=== PATIENT | female | born 1955 | race Caucasian/White ===

== ENCOUNTER → 2018-05-12 10:13 | Outpatient (CLI) | payer OTHER, SELFPAY | PROVIDERS: Family Provider Family Medicine; PCP Family Medicine; Visit Provider Family Medicine | DX: Z78.0 Asymptomatic menopausal state (principal); Z82.62 Family history of osteoporosis | CPT/HCPCS: 77080 ==

== ENCOUNTER → 2020-06-08 12:45 | Outpatient (CLI) | payer MEDICARE, OTHER, SELFPAY ==
--- NOTE | 2020-06-08 | DI.MRI.S_ITS ---
BREAST MRI OF BOTH BREASTS- WITH CAD: 06/08/2020 CLINICAL: Breast Cancer. Comparison is made to exams dated: 05/17/2020 mammogram, 05/17/2020 ultrasound biopsy, 05/07/2020 ultrasound, 05/07/2020 mammogram, and 04/24/2020 mammogram - [facility]. Interpretation of this MRI was correlated with available mammograms, ultrasounds, and clinical information. Gadolinium contrast calibrated to patient weight was injected. The patient was placed prone in a dedicated breast imaging coil. Precontrast axial STIR and 3D FLASH without fat saturation sequences were obtained. Both before and after bolus injection of contrast, sequential 1-minute axial 3D FLASH with fat saturation sequences for 3 time points, with subtraction images and maximum intensity projections (MIP's) generated. Delayed sagittal FLASH images with fat saturation were also obtained. Computer-aided detection, including computer algorithm analysis of MRI image data for lesion detection and characterization, pharmacokinetic analysis, with further physician review for interpretation, was performed. There is mild bilateral background parenchymal enhancement Right breast: There is a single focus of abnormal enhancement measuring approximate 5 mm on series 12 image 68. This demonstrates brisk arterial phase enhancement with rapid washout on subsequent post-contrast sequences (type III kinetics). The lesion is T1/T2 isointense. No findings of neovascularity or skin thickening. The nipple-areolar complex demonstrates normal enhancement. No right axillary or internal mammary lymphadenopathy. Left breast: Previously biopsied mass in the 2:00 position is redemonstrated, with avid uniform enhancement which demonstrates type III kinetics. The lesion measures approximately 1.4 x 1.1 x 1.2 cm AP x LR x CC. The mass is 7.5 cm deep to the nipple and 3.4 cm deep to the lateral margin of the breast when measured perpendicularly to these landmarks. There is a small 1 cm T1 hyperintense hematoma related to biopsy. No additional abnormal enhancement in the left breast. No findings of neovascularity or skin thickening. Unremarkable nipple-areolar complex. No evidence of left axillary or internal mammary lymphadenopathy. IMPRESSION: KNOWN BIOPSY PROVEN MALIGNANCY 1. Previously biopsied left breast mass consistent with invasive ductal carcinoma. 2. Small but mildly suspicious 5 mm right breast mass. A second look ultrasound is recommended to potentially localize this lesion for biopsy. If unsuccessful, a follow-up MRI in 3-6 months would be recommended. 3. No findings of parth metastasis. BIRADS: 6 This exam was interpreted at Station ID: [id number]. Electronically Signed By: Jorge Luis Mosquera M.D. jr/:06/08/2020 16:56:09 letter sent: Clinical Evaluation ACR BI-RADS Category 6: Known biopsy proven malignancy 3346F
== END ==
PROVIDERS: Family Provider Family Medicine; PCP Student in an Organized Health Care Education/Training Program; Referring Provider Student in an Organized Health Care Education/Training Program; Visit Provider Surgery
DX: C50.412 Malignant neoplasm of upper-outer quadrant of left female breast (principal); N63.10 Unspecified lump in the right breast, unspecified quadrant; Z78.0 Asymptomatic menopausal state; Z82.62 Family history of osteoporosis
CPT/HCPCS: 77049; 77080; A9579

== ENCOUNTER → 2020-06-20 09:40 | Outpatient (CLI) | payer MEDICARE, OTHER, SELFPAY ==
--- NOTE | 2020-06-20 | DI.US.S_ITS ---
LIMITED ULTRASOUND OF RIGHT BREAST: 06/20/2020 CLINICAL: MRI DONE- RT BREAST 06/08/20- U/S RT BREAST AREA SEEN ON MRI- KF. Comparison is made to exams dated: 06/08/2020 breast MRI - [facility], 05/17/2020 ultrasound biopsy, 05/17/2020 mammogram, 04/24/2020 mammogram, 05/07/2020 ultrasound, and 05/07/2020 mammogram - [facility]. Ultrasound of the right breast 9 o'clock, and retroareolar regions was performed. There is a 0.5 cm x 0.5 cm x 0.3 cm oval mass with an indistinct margin in the right breast at 9 o'clock middle depth 1.5 cm from the nipple. This oval mass is hypoechoic. This lesion may correspond to the MRI abnormality. IMPRESSION: SUSPICIOUS OF MALIGNANCY The 0.5 cm x 0.5 cm x 0.3 cm oval mass in the right breast is at a low suspicion for malignancy. An ultrasound guided biopsy is recommended. The findings and recommendations were discussed with the patient by the on-site radiologist, Dr. Howard, at the time of the exam. After the biopsy, correlation between mammographic clip location and the MRI finding can be further assessed. This exam was interpreted at Station ID: [id number]. Electronically Signed By: Brock painter/andreina:06/20/2020 14:24:07 letter sent: Biopsy Required Ultrasound BI-RADS: 4a Low suspicion for malignancy
== END ==
PROVIDERS: Family Provider Family Medicine; PCP Student in an Organized Health Care Education/Training Program; Referring Provider Student in an Organized Health Care Education/Training Program; Visit Provider Surgery
DX: R92.8 Other abnormal and inconclusive findings on diagnostic imaging of breast (principal); N63.15 Unspecified lump in the right breast, overlapping quadrants
CPT/HCPCS: 76642

== ENCOUNTER → 2020-06-27 09:12 | Outpatient (CLI) | payer MEDICARE, OTHER, SELFPAY ==
--- NOTE | 2020-06-27 | DI.US.S_ITS ---
ULTRASOUND OF RIGHT BREAST: 06/27/2020 CLINICAL: Right breast possible biopsy based on MRI. Mass not seen with ultrasound today - biopsy cancelled. Comparison is made to exams dated: 06/20/2020 ultrasound, 06/08/2020 breast MRI - [facility], 04/24/2020 mammogram, 03/24/2019 mammogram, 01/27/2018 mammogram, and 10/08/2016 mammogram - [facility]. Real-time and Doppler ultrasound of the right breast were performed on the areas of interest. Jones scale images of the real-time examination were reviewed. The 0.5 cm x 0.5 cm x 0.3 cm oval mass with an indistinct margin in the right breast at 9 o'clock middle depth 1.5 cm from the nipple is no longer seen. IMPRESSION: SUSPICIOUS OF MALIGNANCY Previous focus at the 9:00 right breast is no longer seen. No suspicious ultrasound finding is seen. As discussed in the previous breast MRI, follow-up breast MRI in 3-6 months recommended to demonstrate stability. Findings and recommendations were discussed in detail with the patient at the time of the examination and all questions were answered. This exam was interpreted at Station ID: [id number]. Electronically Signed By: Mendez leggett/:06/27/2020 14:09:27 Ultrasound BI-RADS: 4a Low suspicion for malignancy
== END ==
PROVIDERS: Family Provider Family Medicine; PCP Student in an Organized Health Care Education/Training Program; Referring Provider Surgery; Visit Provider Surgery
DX: R92.8 Other abnormal and inconclusive findings on diagnostic imaging of breast (principal)
CPT/HCPCS: 76642

== ENCOUNTER → 2020-12-04 10:19 | Outpatient (CLI) | payer MEDICARE, OTHER, SELFPAY ==
[2020-12-04 11:15] LABS: COVID19 -Nasal RAPID Negative (Negative)
== END ==
PROVIDERS: PCP Student in an Organized Health Care Education/Training Program; Visit Provider Specialist
DX: Z01.812 Encounter for preprocedural laboratory examination (principal); Z20.822 Contact with and (suspected) exposure to COVID-19
CPT/HCPCS: 87635

== ENCOUNTER 2020-12-04 12:17 | Day surgery (SDC) | payer MEDICARE, OTHER, SELFPAY ==
[2020-12-04] VITALS (15 sets, daily range): BP systolic 79–186; BP diastolic 48–93; PULSE 54–69; RESP 12–19; TEMP 36.6–37.1; O2SAT 91–100; BMI 22.1
[2020-12-04] MEDS: LACTATED RINGERS 1,000 ML 100 ML IV ×2 (12:57→16:31)
--- NOTE | 2020-12-04 13:12 | SUR.PREOP ---
After IV was placed patient began to feel faint. Cool washcloth placed on forehead and patient laid back on stretcher. Noted to be hypotensive (see documentation). Placed in trendelenburg and fluids opened up. Blood pressure began to come up and patient stated she was starting to feel better. Dr. Diaz at bedside and updated on episode. Blood pressure now 137/77 and patient states she is feeling better. Now laying flat in bed with fluids slowed.
--- NOTE | 2020-12-04 13:21 | PM.PREOP ---
Pre-operative Note COVID-19 COVID-19 status: Negative Result date/Date tested (Pos, Neg/Pending): 12/04/20 Interval Note History & Physical reviewed/Exam performed by Physician: Yes Changes to H&P: No
[2020-12-04] MEDS: CEFAZOLIN 2 GM/100 ML FROZ.PIGGY IV (13:40)
--- NOTE | 2020-12-04 13:53 | SUR.OPER ---
Lithotomy on padded OR bed, head on pillow, arms secured on padded arm boards at <90 degrees abduction. Legs secured in padded yellow fins stirrups.
[2020-12-04] MEDS: BUPIVACAINE 0.25% W/ EPI (PF) 10 ML VIAL 20 ML INJ (13:58)
--- NOTE | 2020-12-04 15:07 | PM.OP.1 ---
Operative Date/Time/Diagnoses Date of procedure: 12/04/20 Time of procedure: 15:07 Pre-op diagnosis: Uterine prolapse Post-op diagnosis: same Procedure & Clinicians Procedure: Anterior and posterior repair with sacrospinous ligament fixation and perineoplasty Same procedure as scheduled: Yes (With added perineoplasty) Indications: Symptomatic uterine prolapse with mild cystocele and rectocele with slightly gaping introitus Surgeon: Marni Diaz Click Yes if Unassisted: Yes Anesthesia Type: General Operative Notes Findings: Cervix prolapsing to 1 cm from the hymen with first-degree cystocele and first-degree rectocele with slightly gaping introitus. Small uterus with no adnexal masses on exam under anesthesia. No rectal masses on exam under anesthesia Closure Type: primary Specimen(s): none sent Applied: catheter (White) and other (Vaginal packing) Estimated Blood Loss (mL): 50 Blood products transfused: none Procedure in detail: Patient was brought to the operating room where she was placed in yellowfin stirrups and prepped and draped in the usual sterile fashion. A check system was reviewed prior to the beginning of the case. Pulsatile stockings were in place and functional throughout the case. Warming was in place. 2 g of Ancef were in prior to beginning of the case. A White catheter was placed. A dilute solution of 1% lidocaine with epinephrine was injected over the cystocele. An incision was made over the cystocele and the incision dissected laterally. Plicating sutures were made over the cystocele with 0 Vicryl suture. The incision was closed with 2-0 Vicryl suture. Next a wedge shaped tissue was taken out of the posterior vaginal opening. The area over the rectocele was injected with a dilute solution of 1% lidocaine with epinephrine. An incision was made over the rectocele with the scalpel. The dissection was undertaken laterally. 0 Prolene suture with the Capio passer was placed through the uterosacral ligament on the right side x2 and sutured to the underside of the cervix. 0 Vicryl suture was used to plicate over the rectocele. A finger was placed in the rectum to be sure there were no sutures placed through the rectal mucosa. The uterosacral sutures were tightened down and the vaginal incision was closed with 2-0 Vicryl suture. The perineal body was built up with interrupted 2 0 Vicryl sutures. The skin was closed with the 2-0 Vicryl suture. Vaginal packing was placed in the vagina and the White left in place. Counts of instruments and sponges were correct. The patient went to recovery room in good condition. Complications: none Post-operative Condition: stable Disposition: Acute Care Plan for aftercare: Vaginal packing and White will be removed in the morning and patient will be sent home after postvoid residual
[2020-12-04] MEDS: OXYCODONE/ACETAMINOPHEN 5/325 TABLET 1 TAB PO (15:11)
[2020-12-04] MEDS: ONDANSETRON 4 MG/2 ML INJ IV ×2 (15:11→20:18)
[2020-12-04] MEDS: KETOROLAC 30 MG/ML VIAL IV (20:22)
[2020-12-04] MEDS: diphenhydrAMINE 25 MG TABLET PO (22:10)
[2020-12-04] MEDS: DOCUSATE 100 MG CAPSULE PO (22:10)
--- NOTE | 2020-12-04 23:48 | PC.NURSE ---
Report received from PACU, care assumed at 1530 A&Ox3. VSS. Vaginal packing intact, scant drainage. White catheter. Reports pain 3/10, well-tolerated. Intermittently nauseated, no emesis. Pt. OOB to chair x1. Virgilina woozy and nauseated and wanted to immediately return to bed. Requested sleep aid. Order obtained.
[2020-12-05 00:40] VITALS: BP 148/80; PULSE 68; RESP 14; TEMP 37.2; O2SAT 96
[2020-12-05 01:30] VITALS: O2SAT 97
[2020-12-05] MEDS: KETOROLAC 30 MG/ML VIAL IV ×2 (02:29→09:01)
[2020-12-05 03:14] VITALS: BP 138/73; PULSE 68; RESP 14; TEMP 37.1; O2SAT 98
[2020-12-05] MEDS: LACTATED RINGERS 1,000 ML 100 ML IV (05:09)
[2020-12-05] MEDS: ONDANSETRON 4 MG/2 ML INJ IV ×2 (05:10→12:24)
[2020-12-05 05:21] LABS: Add Manual Diff / Slide Review NO; Basophils Absolute Auto 0 /uL (0-100); Basophils Percent Auto 0.2 % (0-2); Eosinophils Absolute Auto 0 /uL (0-450); Hematocrit 40.7 % (36-46); Hemoglobin 13.5 g/dL (12.0-16.0); Lymphocytes Absolute Auto 1000 /uL (1100-4500); Lymphocytes Percent Auto 8.5 % (25-40); Mean Corpuscular HGB Conc 33.3 % (30-36); Mean Corpuscular Hemoglobin 29.9 PG (26-34); Monocytes Absolute Auto 800 /uL (0-900); Monocytes Percent Auto 6.5 % (3-14); Neutrophils Absolute Auto 9900 /uL (1500-7000); Neutrophils Percent Auto 84.8 % (50-75); Platelet Count 191 X10^3/uL (150-400); Red Blood Cell Count 4.52 X10^6/uL (4.0-5.2); Red Cell Distribution Width 12.2 % (11.6-14.8); White Blood Cell Count 11.6 X10^3/uL (4.5-11.0)
[2020-12-05] MEDS: OXYCODONE IR 5 MG TABLET PO ×2 (05:39→12:23)
--- NOTE | 2020-12-05 07:47 | PM.DS.1 ---
History of Present Illness History of Present Illness Date Patient Seen: 12/05/20 Time Patient Seen: 07:48 Chief complaint: *OPB* Narrative: Postoperative day #1 anterior posterior repair with sacrospinous ligament fixation. Patient had some mild nausea earlier but is feeling fine now. Pain is controlled with narcotic. Patient passed her bladder trial. Minimal vaginal bleeding Discharge Providers Provider Discharge Date: 12/05/20 Primary care physician: Chely Pepe MD Discharge provider: Marni Diaz MD Summary Hospital Course Discharge Diagnosis: Uterine prolapse status post anterior and posterior repair with sacrospinous ligament fixation and perineoplasty Hospital Course: Patient underwent an anterior and posterior repair with sacrospinous ligament fixation and perineoplasty on 12/04/2020 she is doing well postop she passed her bladder trial Status at Discharge Cognitive/behavioral status at discharge: oriented Functional status at discharge: independent ambulation Overall status at discharge: patient is progressing back to baseline Exam Vital Signs (past 8 hours): - 12/05/20 00:40 12/05/20 01:30 12/05/20 03:14 Temperature 98.9 F 98.8 F Pulse Rate 68 68 Respiratory Rate 14 14 Blood Pressure 148/80 H 138/73 Pulse Oximetry 96 97 98 Oxygen Delivery Method Room Air Oxygen Flow Rate 0 Narrative Exam Narrative: Patient's abdomen is soft, nontender. Vaginal packing was removed with minimal amount of blood on it. White catheter removed. Extremities are nontender and no edema. Objective Labs Result Diagrams: 12/05/20 04:55 Labs: Laboratory Results - last 24 hr 12/05/20 04:55 WBC 11.6 H RBC 4.52 Hgb 13.5 Hct 40.7 MCV 90.0 MCH 29.9 MCHC 33.3 RDW 12.2 Plt Count 191 Neut % (Auto) 84.8 H Lymph % (Auto) 8.5 L Ransom % (Auto) 6.5 Eos % (Auto) 0.0 L Baso % (Auto) 0.2 Neut # (Auto) 9900 H Lymph # (Auto) 1000 L Ransom # (Auto) 800 Eos # (Auto) 0 Baso # (Auto) 0 PFSH Medical History (Updated 12/04/20 @ 08:29 by Lilly Rush RN) Contreras's esophagus (~2014) Chicken pox Colon polyps (~2009) Fibroids (~1989) Headache (~2009) Heavy menstrual period (~1969) Hypertension (~2009) Mumps Osteoarthritis (~2004) Painful menstrual periods (~1969) Postmenopausal Tinnitus (~2004) Surgical History (Updated 05/30/20 @ 16:56 by Agustín Jo MD) Anesthesia Skin cancer Family History (Updated 11/17/19 @ 20:42 by Dawn Santos) Father Prostate cancer History of heart disease Hypertension Hyperlipidemia Stroke Mother Breast cancer History of heart disease Hyperlipidemia Hypertension Stroke Brother Hyperlipidemia Hypertension Sister Hypertension Hyperlipidemia Social History household members: spouse Smoking Status: Never smoker alcohol intake: current Discharge Assessment & Plan Assessment and Plan Assessment: Postoperative repair of prolapse doing well Discharge Plan Discharge Plan Patient Disposition: Home Discharge orders & Medications Discharge Orders: Discharge (Order); Ordered 12/05/20 Ordered By: Marni Diaz Prescriptions: New ondansetron 4 mg tablet,disintegrating 4 mg PO Q8H PRN (Reason: nausea and vomiting) Qty: 10 RF: 1 oxycodone 5 mg tablet 5 mg PO Q6H PRN (Reason: pain) Qty: 20 RF: 0 Continued ascorbic acid (vitamin C) 500 MG tablet 500 mg PO QDAY Qty: 0 RF: 0 cholecalciferol (vitamin D3) [Vitamin D3] 1,000 UNIT tablet 1,000 unit PO QDAY Qty: 0 RF: 0 coenzyme Q10 [CoQ-10] 30 mg capsule 30 mg PO DAILY RF: 0 atorvastatin 40 mg tablet 40 mg PO DAILY RF: 0 cyanocobalamin (vitamin B-12) [Vitamin B-12] 1,000 mcg Tablet 1,000 mcg PO DAILY RF: 0 zinc 50 mg Tablet 50 mg DAILY RF: 0 hydrochlorothiazide 12.5 mg Tablet 12.5 mg PO DAILY RF: 0 [place] Mushroom 1 tab DAILY RF: 0 lisinopril 50 mg 50 mg PO DAILY RF: 0 omega-3 fatty acids-vitamin E 1,000 mg Capsule 1 cap PO DAILY RF: 0 letrozole 2.5 mg tablet 2.5 mg PO Q OTHER DAY RF: 0 Follow up/Referrals: Marni Diaz MD [Physician] - 2 Weeks Chely Pepe MD [Primary Care Provider] - Diet/Activity/Treatments Diet: Regular Activity: Nothing in vagina or lifting over 20 lb for 6 weeks May shower immediately. No baths for [address] within 4 hours of taking narcotic pain medicine. Skin/Wound/Dressing Care Report to your healthcare provider any signs of infection, such as:: chills, fever and increased pain Dressing: There are no dressings Visit Report/Discharge Packet Instructions: DI for Cystocele and Rectocele Repair, DI for Constipation Discharge Data Primary Care Provider: Chely Pepe Attending Provider: Marni Diaz
[2020-12-05 08:00] VITALS: O2SAT 100
[2020-12-05 08:09] VITALS: BP 144/73; PULSE 60; RESP 21; TEMP 36.6; O2SAT 98
[2020-12-05] MEDS: lisinopriL 20 MG TABLET 50 MG PO (09:00)
[2020-12-05] MEDS: DOCUSATE 100 MG CAPSULE PO (09:00)
[2020-12-05] MEDS: hydroCHLOROthiazide 25 MG TABLET 12.5 MG PO (09:01)
--- NOTE | 2020-12-05 11:40 | CM.DANOTE ---
DCP: Case received, EMR reviewed and met with patient. Introduced self and role. Was able to obtain information from patient regarding her baseline activity status prior to hospitalization. DCP assessment completed with information currently available. Patient is a 65 year old female who admitted yesterday to the care of the [facility]. PCP: Yaritza Kennedy. Payer: confirmed: Medicare/[employer]. Patient came to the hospital for a surgical procedure. She had anterior posterior repair with sacrospinous fixation ligament. Patient has history of uterine prolapse with cystole Met with patient in her room. She is alert and oriented, pleasant. Patient resides on [address] with her spouse, Jonathan. She is independent at baseline. P: Patient is to be discharged home today. Lyric Vincent RN/Lithographic Stripper
--- NOTE | 2020-12-05 16:18 | PC.NURSE ---
Discharge: Pt feels ready to d/c home. She is able to eat, but does have nausea at times. Vds w/out diff. Po pain meds effective for pain control. RX for zofran and pain meds were called in and already picked up by dtr. Priority load pass given. There was some confusion about pain medications. Dr. Diaz cleared up pt concern. Vd this am after isaac removal was 400mls, pvr was 35mls. Reviewed d/c packet. Questions answered. Pt d/c to home with dtr.
== END 2020-12-05 14:35 | disposition home or self-care (01) ==
LOC: OR 12:20 → AC 12:20
PROVIDERS: PCP Student in an Organized Health Care Education/Training Program; Referring Provider Specialist; Visit Provider Specialist
PROC: (CPT 57282; principal; 2020-12-04 13:30)
DX: N81.2 Incomplete uterovaginal prolapse (principal); I10 Essential (primary) hypertension; Z20.822 Contact with and (suspected) exposure to COVID-19
CPT/HCPCS: 57282; 57260; 36415; 85025; 87635; C9803; J0690; J1100; J1885; J2250; J2405; J2704; J3010

== ENCOUNTER → 2021-01-03 12:00 | Outpatient (CLI) | payer MEDICARE, OTHER, SELFPAY ==
[2020-12-04 12:34] VITALS: BMI 22.1
--- NOTE | 2021-01-03 | DI.MRI.S_ITS ---
BREAST MRI OF BOTH BREASTS: 01/03/2021 CLINICAL: Malignant neoplasm of unspecified site of left breast. The patient was placed prone in a dedicated breast imaging coil. Precontrast axial STIR and 3D FLASH without fat saturation sequences were obtained. Both before and after bolus injection of contrast, sequential 1-minute axial 3D FLASH with fat saturation sequences for 3 time points, with subtraction images and maximum intensity projections (MIP's) generated. Delayed sagittal FLASH images with fat saturation were also obtained. Computer-aided detection, including computer algorithm analysis of MRI image data for lesion detection and characterization, pharmacokinetic analysis, with further physician review for interpretation, was performed. Comparison is made to prior mammogram and ultrasound studies as well as prior MRI breast 06/08/2020. Left breast: Left breast lumpectomy changes. No suspicious enhancement within the surgical bed or elsewhere in the left breast. No findings of neovascularity or skin thickening. The nipple-areola complex is unremarkable. No abnormally enhancing or threshold enlarged lymph node in the axillary, subpectoral, or internal mammary stations. Right breast: No suspicious enhancement in the right breast. No findings of neovascularity or skin thickening. The nipple-areola complex is unremarkable. No abnormally enhancing or threshold enlarged lymph node in the axillary, subpectoral, or internal mammary stations. Bilateral background breast enhancement is mild and symmetric. IMPRESSION: BENIGN No findings of recurrent or residual disease. COMMENT: The imaging literature indicates that a negative contrast breast MRI examination has a high sensitivity and a moderate specificity for detecting and excluding invasive carcinomas to a detection threshold of 3-5 mm; nonetheless, appropriate clinical and mammographic follow-up are recommended. MRI is not sensitive for detecting DCIS (ductal carcinoma in situ) and may not detect large invasive neoplasms that show only minimal enhancement such as mucinous carcinoma. If there are suspicious calcifications or clinically worrisome palpable masses, then biopsy should still be considered. Invasive neoplasms can be hidden by co-existent and benign enhancement caused by mastitis, hormone therapy effects, radiation therapy, , and recent biopsy or surgery. False positive examinations can occur in a number of circumstances, including breasts that have recently been subject to invasive procedures and those that contain atypical ductal hyperplasia, hormonally stimulated glandular tissue, fat necrosis, or radial scars. Future imaging is recommended as follows: 04/25/2021 screening mammogram. This exam was interpreted at Station ID: [id number]. Electronically Signed By: Jorge Luis Mosquera M.D. jr/:01/03/2021 14:58:11 letter sent: Normal Exam ACR BI-RADS Category 2: Benign Finding(s) 3342F
== END ==
PROVIDERS: PCP Student in an Organized Health Care Education/Training Program; Referring Provider Surgery; Visit Provider Surgery
DX: C50.912 Malignant neoplasm of unspecified site of left female breast (principal)
CPT/HCPCS: 77049

== ENCOUNTER → 2021-03-05 12:08 | Outpatient (CLI) | payer MEDICARE, OTHER, SELFPAY ==
[2020-12-04 12:34] VITALS: BMI 22.1
--- NOTE | 2021-03-05 12:13 | DI.RAD.S_ITS ---
PROCEDURE: XR FOOT LT MIN 3V INDICATIONS: LT FOOT PAIN TECHNIQUE: 3 views of the foot were acquired. COMPARISON: None. FINDINGS: Bones: No fractures or dislocations. No suspicious bony lesions. Mild hallux valgus metatarsus prima varus alignment and medial bunion. Mild 1st MTP and diffuse interphalangeal joint space narrowing. Soft tissues: No tibiotalar joint effusion. Achilles tendon appears normal. IMPRESSION: Numeral. Mild hallux valgus alignment and medial bunion. 2. Mild 1st MTP and diffuse interphalangeal joint degeneration. Dictated by: Jose Dumont [facility] Interpreted: Darinel Gallardo MD on 03/05/2021 at 13:35 Transcribed by: MAGAN on 03/05/2021 at 13:36 Approved by: Darinel Gallardo M.D. on 03/05/2021 at 15:37
== END ==
PROVIDERS: PCP Student in an Organized Health Care Education/Training Program; Referring Provider Student in an Organized Health Care Education/Training Program; Visit Provider Student in an Organized Health Care Education/Training Program
DX: M79.672 Pain in left foot (principal); M20.12 Hallux valgus (acquired), left foot; M21.612 Bunion of left foot; M19.072 Primary osteoarthritis, left ankle and foot
CPT/HCPCS: 73630

== ENCOUNTER → 2021-04-25 11:28 | Outpatient (CLI) | payer MEDICARE, OTHER, SELFPAY ==
[2020-12-04 12:34] VITALS: BMI 22.1
--- NOTE | 2021-04-25 | DI.MG.S_ITS ---
BILATERAL DIGITAL SCREENING MAMMOGRAM 3D/2D WITH CAD: 04/25/2021 CLINICAL: Routine screening. Personal history of left breast cancer. Family history of breast cancer. Comparison is made to exams dated: 01/03/2021 breast [facility], 05/17/2020 mammogram, 05/07/2020 mammogram, and 04/24/2020 mammogram - [facility]. The tissue of both breasts is heterogeneously dense. This may lower the sensitivity of mammography. Current study was also evaluated with a Computer Aided Detection (CAD) system. There are benign post operative findings in the left breast. No significant masses, calcifications, or other findings are seen in either breast. There has been no significant interval change. IMPRESSION: BENIGN There is no mammographic evidence of malignancy. A 1 year screening mammogram is recommended. This exam was interpreted at Station ID: [id number]. NOTE: For mammograms, a report in lay terms will be sent to the patient. Approximately 15% of breast malignancies will not be visualized mammographically. In the management of a palpable breast mass, a negative mammogram must not discourage biopsy of a clinically suspicious lesion. Electronically Signed By: Migue cruz/andreina:04/25/2021 12:08:54 letter sent: Normal Exam ACR BI-RADS Category 2: Benign Finding(s) 3342F
== END ==
PROVIDERS: PCP Student in an Organized Health Care Education/Training Program; Referring Provider Surgery; Visit Provider Surgery
DX: Z12.31 Encounter for screening mammogram for malignant neoplasm of breast (principal); Z85.3 Personal history of malignant neoplasm of breast; Z80.3 Family history of malignant neoplasm of breast
CPT/HCPCS: 77063; 77067

== ENCOUNTER → 2022-05-27 13:55 | Outpatient (CLI) | payer MEDICARE, OTHER, SELFPAY ==
[2020-12-04 12:34] VITALS: BMI 22.1
--- NOTE | 2022-05-27 | DI.MG.S_ITS ---
BILATERAL DIGITAL SCREENING MAMMOGRAM 3D/2D WITH CAD POST LUMPECTOMY: 05/27/2022 CLINICAL: Routine screening. Personal history of left breast cancer. Family history of breast cancer. Comparison is made to exams dated: 04/25/2021 mammogram - [facility], 04/24/2020 mammogram, and 03/24/2019 mammogram - [facility]. Both breasts are heterogeneously dense, which may obscure small masses (category c / 51-75% glandular tissue). Current study was also evaluated with a Computer Aided Detection (CAD) system. There are benign post operative findings in the left breast. No significant masses, calcifications, or other findings are seen in either breast. There has been no significant interval change. IMPRESSION: BENIGN There is no mammographic evidence of malignancy. A 1 year screening mammogram is recommended. This exam was interpreted at Station ID: [id number]. NOTE: For mammograms, a report in lay terms will be sent to the patient. Approximately 15% of breast malignancies will not be visualized mammographically. In the management of a palpable breast mass, a negative mammogram must not discourage biopsy of a clinically suspicious lesion. Electronically Signed By: Levy loaiza/andreina:05/27/2022 18:08:45 copy to: RICHARD CALZADA letter sent: Normal Exam ACR BI-RADS Category 2: Benign Finding(s) 3342F
== END ==
PROVIDERS: PCP Family Medicine; Referring Provider Family Medicine; Visit Provider Family Medicine
DX: Z12.31 Encounter for screening mammogram for malignant neoplasm of breast (principal); Z80.3 Family history of malignant neoplasm of breast; Z85.3 Personal history of malignant neoplasm of breast
CPT/HCPCS: 77063; 77067

== ENCOUNTER 2022-11-06 09:39 | Day surgery (SDC) | payer MEDICARE, OTHER, SELFPAY ==
[2020-12-04 12:34] VITALS: BMI 22.1
--- NOTE | 2022-11-06 | PATH_ITS ---
[facility] Accession Number: [id number] No. of containers..03 Tissue . 01 Material submitted: . PART A: esophagus, E-G Junction - GE JUNCTION PART B: colon - TRANSVERSE POLYPS X 2 PART C: colon - DESCENDING POLYP X 2 . 01 Diagnosis: A. Gastroesophageal Junction, Biopsy: Columnar mucosa with mild chronic inflammation. Negative for intestinal metaplasia. Negative for dysplasia and malignancy. . B. Transver Colon, Polyps x2, Biopsies: Tubular adenoma. Serrated lesion, favor sessile serrated adenoma. . C. Descending Colon, Polyp x2, Biopsies: Tubular adenoma in four of eight fragments. MRV 11/11/2022 1456 Local . 01 Electronically signed: . Ilda Shannon MD, Pathologist NPI- [id number] . 01 Gross description: . Part A: GE JUNCTION: Received in formalin are 2 fragment(s) of marquez, soft tissue measuring 0.2 x 0.2 x 0.2 cm to 0.3 x 0.3 x 0.2 cm submitted entirely in 1 cassette(s) Part B: TRANSVERSE POLYPS X 2: Received in formalin are 3 fragment(s) of marquez, soft tissue measuring 0.2 x 0.1 x 0.1 cm to 1.4 x 0.3 x 0.3 cm submitted entirely in 1 cassette(s) Part C: DESCENDING POLYP X 2: Received in formalin are multiple fragment(s) of marquez, soft tissue measuring 0.2 x 0.2 x 0.1 cm to 0.6 x 0.6 x 0.3 cm submitted entirely in 1 cassette(s) /LES 11/07/2022 0100 Local . 01 Pathologist provided ICD-10: D12.3, D12.4 . 01 CPT . 392094, 747811, 502202 Specimen Comment: A courtesy copy of this report has been sent to [phone] Performed at: 01 [facility] [address] [place] [address], [place], [place] [id number] MD Migue Weaver MD Phone: [phone]
[2022-11-06] MEDS: LACTATED RINGERS 1,000 ML 42 ML IV (09:53)
[2022-11-06 10:02] VITALS: BP 154/83; PULSE 85; RESP 17; TEMP 36.6; O2SAT 97; BMI 21.2
--- NOTE | 2022-11-06 11:35 | PM.OP.EC ---
Operative Date/Time/Diagnoses Date of procedure: 11/06/22 Time of procedure: 11:35 Pre-op diagnosis: History of Contreras's esophagus and history of colon polyps Post-op diagnosis: same Procedure & Clinicians Study performed: EGD and colonoscopy Same procedure as scheduled: Yes Surgeon: Ben Marcano Procedure Notes Procedure in detail: Surgeon: Ben Marcano MD Anesthesia: Tarsha Hudson EXPERIENCE DESIGN DIRECTOR Procedure in detail: A timeout was performed. A bite blocked was placed and monitors were attached to the patient. The patient was positioned in a left lateral decubitus position. Sedation was administered. Once the patient was sedated the endoscope was inserted through the bite block and passed through the esophagus and stomach and into the duodenum. Duodenum was normal. We then withdrew the scope into the stomach. No abnormalities were seen in stomach. The endoscope was retroflexed and a very small hiatal hernia was seen. The endoscope was straightned and withdrawn into the esophagus. There was some salmon-colored mucosa at the GE junction and random biopsies were taken. Findings: [place]-colored mucosa at the GE junction Next we repositioned the patient for a colonoscopy. A digital rectal exam was performed and was normal. The colonoscope was inserted and advanced to the cecum. The appendiceal orifice was identified and photographed. The scope was slowly withdrawn over greater than 6 minutes. There were 2 polyps each about 7 mm in the transverse colon and they were removed with cold snare and sent together. There were 2 polyps in the descending colon one of which was about 1 cm and had to be removed piecemeal with cold snare and Jumbo forceps. The smaller of the 2 polyps was about 7 mm and was removed in 1 shot with the cold snare. Some ink was injected where these 2 polyps removed. They were sent together. The scope was retroflexed in the rectum and no other abnormalities were seen. Findings: 2 polyps of about 7 mm in the transverse colon and 2 polyps in the descending colon was about 1 cm and the other about 7 mm EBL: 10 mL Scope withdrawal time: 19 minutes Sedation minutes: 27 minutes Post-procedure Disposition: PACU
--- NOTE | 2022-11-06 11:37 | PM.HP.1 ---
History of Present Illness History of Present Illness Date Patient Seen: 11/06/22 Time Patient Seen: 11:37 Chief complaint: EGD/Colonoscopy Narrative: Jessica has a history of Contreras's esophagus. She is due for colonoscopy this year. See the office note from February for details. Patient History Medical History Contreras's esophagus (~2014) Chicken pox Colon polyps (~2009) Fibroids (~1989) Headache (~2009) Heavy menstrual period (~1969) Hypertension (~2009) Mumps Osteoarthritis (~2004) Painful menstrual periods (~1969) Postmenopausal Tinnitus (~2004) Surgical History Anesthesia H/O lumpectomy Skin cancer Family & Social History Family History Father Prostate cancer History of heart disease Hypertension Hyperlipidemia Stroke Mother Breast cancer History of heart disease Hyperlipidemia Hypertension Stroke Brother Hyperlipidemia Hypertension Sister Hypertension Hyperlipidemia Social History: household members other Tobacco & Substance use: Smoking Status Never smoker alcohol intake current alcohol intake frequency a few times a week Substance Use Type does not use Meds Home Medications and Allergies Home Medications Medication Instructions Recorded Confirmed Type ascorbic acid (vitamin C) 500 mg 500 mg PO QDAY #0 tabs 06/13/16 11/06/22 History tablet cholecalciferol (vitamin D3) 25 1,000 unit PO QDAY #0 tabs 06/13/16 11/06/22 History mcg (1,000 unit) tablet (Vitamin D3) cyanocobalamin (vitamin B-12) 1,000 mcg PO DAILY 05/30/20 11/06/22 History 1,000 mcg tablet (Vitamin B-12) lisinopril 50 mg PO DAILY 05/30/20 11/06/22 History zinc 50 mg tablet 50 mg DAILY 05/30/20 11/06/22 History atorvastatin 40 mg tablet 40 mg PO DAILY 11/28/20 11/06/22 History sertraline 25 mg tablet (Zoloft) 50 mg PO DAILY 01/14/22 11/06/22 History hydrochlorothiazide 50 mg tablet 50 mg PO DAILY 03/03/22 11/06/22 History sodium,potassium,mag sulfates 17.5 See Rx Instructions PO .COMPLEX 10/01/22 11/06/22 Rx gram-3.13 gram-1.6 gram oral soln #354 mL (Suprep Bowel Prep Kit) letrozole 2.5 mg tablet 2.5 mg PO DAILY #90 tabs 10/28/22 11/06/22 Rx Allergies Allergy/AdvReac Type Severity Reaction Status Date / Time metronidazole [METRONIDAZOLE] Allergy Intermediate hives Verified 11/06/22 09:53 epinephrine AdvReac Intermediate anxiety Verified 11/06/22 09:53 and shaking (I suspect vascular injection) lidocaine AdvReac Intermediate anxiety Verified 11/06/22 09:53 and shaking (I suspect vascular injection) Exam Vital Signs (past 8 hours): - 11/06/22 10:02 Temperature 98 F Pulse Rate 85 Respiratory Rate 17 Blood Pressure 154/83 H Pulse Oximetry 97 Oxygen Delivery Method Room Air Oxygen Delivery Method Room Air Const General: No acute distress Assessment & Plan Assessment and plan (1) History of colon polyps: Status: Acute (2) Contreras's esophagus: Qualifiers: Contreras's esophagus type: without dysplasia Qualified Code(s): K22.70 - Contreras's esophagus without dysplasia Status: Chronic Plan 67-year-old woman who is here for EGD and colonoscopy. She would like to proceed. Time Spent With Patient Critical Care time: I spent a total of [] minutes of critical care time on this patient's care today; this time is exclusive of procedural time.
[2022-11-06 13:04] VITALS: BP 123/68; PULSE 57; RESP 16; O2SAT 98
[2022-11-06 13:11] VITALS: BP 123/68; PULSE 59; RESP 16; TEMP 36.6; O2SAT 98
[2022-11-06 13:20] VITALS: BP 130/74; PULSE 61; RESP 16; TEMP 36.8; O2SAT 99
--- NOTE | 2022-11-06 13:35 | SUR.PHASEII ---
Discharged home with belongings and Instructions/Report. Denies pain, no N/V. WC to ER Entrance to family.
== END 2022-11-06 13:43 | disposition home or self-care (01) ==
PROVIDERS: PCP Family Medicine; Referring Provider Surgery; Visit Provider Surgery
PROC: 0DJ08ZZ Inspection of Upper Intestinal Tract, Via Natural or Artificial Opening Endoscopic (ICD-10-PCS; CPT 43235; principal; 2022-11-06 10:45)
PROC: 0DJD8ZZ Inspection of Lower Intestinal Tract, Via Natural or Artificial Opening Endoscopic (ICD-10-PCS; CPT 45378; 2022-11-06 10:45)
DX: Z12.11 Encounter for screening for malignant neoplasm of colon (principal); Z86.010 Personal history of colon polyps; Z87.19 Personal history of other diseases of the digestive system; K44.9 Diaphragmatic hernia without obstruction or gangrene; K29.50 Unspecified chronic gastritis without bleeding; D12.3 Benign neoplasm of transverse colon; D12.4 Benign neoplasm of descending colon
CPT/HCPCS: 43239; 45381; 45385; J2405

== ENCOUNTER → 2023-07-21 10:05 | Outpatient (CLI) | payer MEDICARE, OTHER, SELFPAY ==
[2020-12-04 12:34] VITALS: BMI 22.1
--- NOTE | 2023-07-21 | DI.MG.S_ITS ---
BILATERAL DIGITAL SCREENING MAMMOGRAM 3D/2D WITH CAD: 07/21/2023 CLINICAL: Routine screening. Family history of breast cancer. Breast cancer. Comparison is made to exams dated: 05/27/2022 mammogram, 04/25/2021 mammogram - [facility], 05/17/2020 mammogram, 05/07/2020 mammogram, and 04/24/2020 mammogram - [facility]. Both breasts are heterogeneously dense, which may obscure small masses (category c / 51-75% glandular tissue). Current study was also evaluated with a Computer Aided Detection (CAD) system. There are benign calcifications in both breasts. There also are benign post operative findings in the left breast. No significant masses, calcifications, or other findings are seen in either breast. There has been no significant interval change. IMPRESSION: BENIGN There is no mammographic evidence of malignancy. A 1 year screening mammogram is recommended. This exam was interpreted at Station ID: [id number]. NOTE: For mammograms, a report in lay terms will be sent to the patient. Approximately 15% of breast malignancies will not be visualized mammographically. In the management of a palpable breast mass, a negative mammogram must not discourage biopsy of a clinically suspicious lesion. Electronically Signed By: Tin Power M.D. acr/penrad:07/21/2023 11:12:44 copy to: RICHARD CALZADA letter sent: Normal Exam ACR BI-RADS Category 2: Benign Finding(s) [id number]
== END ==
PROVIDERS: PCP Family Medicine; Referring Provider Internal Medicine Medical Oncology; Visit Provider Internal Medicine Medical Oncology
DX: Z12.31 Encounter for screening mammogram for malignant neoplasm of breast (principal); Z85.3 Personal history of malignant neoplasm of breast; Z80.3 Family history of malignant neoplasm of breast
CPT/HCPCS: 77063; 77067

== ENCOUNTER → 2023-10-07 09:43 | Outpatient (CLI) | payer MEDICARE, OTHER, SELFPAY ==
[2020-12-04 12:34] VITALS: BMI 22.1
--- NOTE | 2023-10-07 09:45 | DI.RAD.S_ITS ---
Bone Density Report Name: HERBER CASIANO Age: 68 Sex: Female Ethnicity: White Date of : 1955 Indication: postmenopausal; screening for osteoporosis; Referring Provider: RICHARD CURRAN Study: Bone densitometry was performed. Exam Date: October 07, 2023 Accession number: [id number] Bone Density: Region BMD T-score Z-score Classification AP Spine(L1, L2, L3) 1.039 0.2 2.3 Normal Femoral Neck (Left) 0.756 -0.8 1.0 Normal Total Hip (Left) 0.910 -0.3 1.3 Normal Femoral Neck (Right) 0.842 -0.1 1.8 Normal Total Hip (Right) 0.977 0.3 1.8 Normal Total Hip Mean 0.944 0.0 1.6 Normal World Health Organization criteria for BMD impression classify patients as: Normal (T-score at or above -1.0), Osteopenia (T-score between -1.0 and -2.5), or Osteoporosis (T-score at or below -2.5). 10-year Fracture Risk: FRAX not reported because: All T-scores for Spine Total, Hip Total, Femoral Neck at or above -1.0 Previous Exams: -- Region Exam Age BMD T-score BMD Change BMD Change Date g/cm2 vs Baseline vs Previous -- AP Spine (L1-L3) 10/07/2023 68 1.039 0.2 -0.044 (-4.1%)# -0.047 (-4.3%)# 06/08/2020 65 1.086 0.6 0.003 (0.3%) 0.003 (0.3%) 05/12/2018 63 1.083 0.6 Total Hip(Left) 10/07/2023 68 0.910 -0.3 0.014 (1.6%)# 0.005 (0.5%)# 06/08/2020 65 0.905 -0.3 0.009 (1.1%) 0.009 (1.1%) 05/12/2018 63 0.896 -0.4 Total Hip(Right) 10/07/2023 68 0.977 0.3 -0.025 (-2.5%)# 0.081 (9.1%)# 06/08/2020 65 0.896 -0.4 -0.107 (-10.7%)* -0.107 (-10.7%)* 05/12/2018 63 1.003 0.5 -- *Denotes significance at 95% confidence level, LSC for AP Spine = 0.022 g/cm2, LSC for Total Hip = 0.027 g/cm2 Rate of change results reflect vertebral levels common to all scans # Denotes dissimilar scan types or analysis methods Impression: The patient has normal bone mass. No significant bone loss was observed. Discussion: BONE DENSITY IS ABOVE THE MINIMUM DESIRABLE LEVEL AT ALL SKELETAL SITES TESTED. This patient's bone mineral density is above the minimum desirable level (T-score -1.0 or better) at all sites measured. The patient should follow a healthful lifestyle (good nutrition with adequate calcium and vitamin D, and appropriate weight-bearing exercise). Follow-Up: Consider repeating this study in 5 years or sooner if there is some new clinical indication. Reported by: [facility] KARIME BURCH M.D. on 10/07/2023 10:17:00 AM.
== END ==
PROVIDERS: PCP Family Medicine; Referring Provider Family Medicine; Visit Provider Family Medicine
DX: Z13.820 Encounter for screening for osteoporosis (principal); Z78.0 Asymptomatic menopausal state
CPT/HCPCS: 77080

== ENCOUNTER → 2024-08-10 10:54 | Outpatient (CLI) | payer MEDICARE, OTHER, SELFPAY ==
[2020-12-04 12:34] VITALS: BMI 22.1
--- NOTE | 2024-08-10 10:55 | DI.MG.S_ITS ---
BILATERAL DIGITAL SCREENING MAMMOGRAM 3D/2D WITH CAD POST LUMPECTOMY: 08/10/2024 CLINICAL: Routine screening. Personal history of left breast cancer. Family history of breast cancer. Comparison is made to exams dated: 07/21/2023 mammogram, 04/25/2021 mammogram, and 05/27/2022 mammogram - [facility]. The breasts are heterogeneously dense, which may obscure small masses (category c / 51-75% glandular tissue). Current study was also evaluated with a Computer Aided Detection (CAD) system. There are benign calcifications in both breasts. There also are benign post operative findings in the left breast. No significant masses, calcifications, or other findings are seen in either breast. There has been no significant interval change. IMPRESSION: BENIGN There is no mammographic evidence of malignancy. A 1 year screening mammogram is recommended. This exam was interpreted at Station ID: [id number]. NOTE: For mammograms, a report in lay terms will be sent to the patient. Approximately 15% of breast malignancies will not be visualized mammographically. In the management of a palpable breast mass, a negative mammogram must not discourage biopsy of a clinically suspicious lesion. Electronically Signed By: Johanne connolly/andreina:08/10/2024 16:23:40 copy to: SURJIT MADRIGAL letter sent: Normal Exam ACR BI-RADS Category 2: Benign
== END ==
PROVIDERS: PCP Family Medicine; Referring Provider Family Medicine; Visit Provider Family Medicine
DX: Z12.31 Encounter for screening mammogram for malignant neoplasm of breast (principal); Z85.3 Personal history of malignant neoplasm of breast; Z80.3 Family history of malignant neoplasm of breast; R92.333 Mammographic heterogeneous density, bilateral breasts
CPT/HCPCS: 77063; 77067

== ENCOUNTER → 2024-11-14 10:29 | Outpatient (CLI) | payer MEDICARE, OTHER, SELFPAY ==
[2020-12-04 12:34] VITALS: BMI 22.1
--- NOTE | 2024-11-14 10:31 | DI.RAD.S_ITS ---
PROCEDURE: XR LUMBAR SPINE MIN 4V INDICATIONS: Lumbago with sciatica, left side TECHNIQUE: 5 views of the lumbar spine were acquired, including bilateral oblique views. COMPARISON: None. FINDINGS: Bones: 5 nonrib-bearing vertebrae are present. Grade 1 retrolisthesis of L3 on L4 noted with grade 1 anterolisthesis of L5 on S1. Moderate to severe L4-L5 and L5-S1 disc height loss with corresponding endplate sclerosis and marginal osteophytosis. A well corticated chronic appearing fracture deformity of the anterior aspect of the superior L3 vertebral body margin is noted. No vertebral body compression fractures. No suspicious bony lesions. Soft tissues: Overlying bowel gas pattern is normal. No suspicious soft tissue calcifications. Oblique images: No pars defects. IMPRESSION: Multilevel spondylosis and spondylolisthesis of the lumbar spine and chronic appearing anterior superior L3 margin fracture deformity without evidence of acute osseous abnormality. Dictated by: Alok Temple M.D. on 11/15/2024 at 3:03 Approved by: Alok Temple M.D. on 11/15/2024 at 3:05
== END ==
PROVIDERS: PCP Family Medicine; Referring Provider Family Medicine; Visit Provider Family Medicine
DX: M54.42 Lumbago with sciatica, left side (principal); M43.16 Spondylolisthesis, lumbar region; M43.17 Spondylolisthesis, lumbosacral region; M47.816 Spondylosis without myelopathy or radiculopathy, lumbar region; M43.8X6 Other specified deforming dorsopathies, lumbar region
CPT/HCPCS: 72110

== ENCOUNTER → 2025-08-25 11:35 | Outpatient (CLI) | payer MEDICARE, OTHER, SELFPAY ==
[2020-12-04 12:34] VITALS: BMI 22.1
--- NOTE | 2025-08-25 11:38 | DI.MG.S_ITS ---
MM screening mammo BI: 08/25/2025. BI-RADS: 2 CLINICAL: 70-year old female for bilateral screening mammogram. No Tyrer-Cuzick risk score calculation due to the patient's personal history of breast cancer. Patient reports a history of left breast carcinoma diagnosed at age 66. Status-post left lumpectomy with radiation therapy. Current reported family history of breast cancer: mother. The patient had a prior left breast biopsy. PRIOR EXAMS 08/10/2024, 07/21/2023, 05/27/2022, 04/25/2021. MAMMOGRAPHY TECHNIQUE: 2D and 3D (tomosynthesis) digital mammographic views obtained, with additional images as needed for full coverage. Current study was also evaluated with a Computer Aided Detection (CAD) system. DENSITY C. The breasts are heterogeneously dense, which may obscure small masses. MAMMOGRAPHY FINDINGS Right: No suspicious mass, asymmetry, microcalcification, or other abnormality seen. Left: Benign-appearing post-surgical changes noted on the left. There are no suspicious masses, calcifications, or other findings in the breast. IMPRESSION: Right * No evidence of malignancy. Left * No evidence of malignancy with benign findings. RECOMMENDATIONS Bilateral * Annual screening mammography. OVERALL ASSESSMENT CATEGORY BI-RADS-2: Benign. The [employer] recommends annual screening mammography beginning at age 40 for women with average risk of breast cancer. ELECTRONICALLY SIGNED: Pura Huerta M.D. on 08/29/2025 at 08:37:40 AM PT Interpreting Station ID: [id number]
== END ==
PROVIDERS: PCP Family Medicine; Referring Provider Family Medicine; Visit Provider Family Medicine
DX: Z12.31 Encounter for screening mammogram for malignant neoplasm of breast (principal); Z85.3 Personal history of malignant neoplasm of breast; Z80.3 Family history of malignant neoplasm of breast; R92.333 Mammographic heterogeneous density, bilateral breasts
CPT/HCPCS: 77063; 77067